=== PATIENT | female | born 1970 | race Caucasian/White ===

== ENCOUNTER 2024-12-25 07:55 | Day surgery (SDC) | payer OTHER ==
[2024-12-23 13:07] VITALS: BP 127/75; PULSE 78; RESP 18; TEMP 97.9; O2SAT 97
[2024-12-23 13:52] LABS: BASOPHIL # 0.1 10^3/uL (0.0-0.1); BASOPHIL % 0.6 % (0.1-1.2); EOSINOPHIL # 0.3 10^3/uL (0.0-0.2); EOSINOPHIL % 2.5 % (0.0-5.0); HEMATOCRIT(ML) 41.2 % (36.0-46.0); IG % 0.30 % (0.00-0.50); LYMPHOCYTES # 3.05 10^3/uL1 (1.0-4.8); LYMPHOCYTES % 29.9 % (24.0-44.0); MEAN CORP HGB 31.8 pg (26-34); MEAN CORP HGB CONCENTRATION 32.8 g/dL (33-36.5); MEAN CORP VOLUME 96.9 fL (78-100); MONOCYTES # 0.6 10^3/uL (0.3-0.8); MONOCYTES % 6.1 % (5.0-12.0); NEUTROPHIL # 6.2 10^3/uL (1.8-7.7); NEUTROPHILS % 60.6 % (41.0-85.0); RED BLOOD CELL 4.25 10^6/uL (4.00-5.20); RED CELL DISTRIBUTION WIDTH 13.8 % (11.5-14.5); WHITE BLOOD CELL 10.2 10^3/uL (4.5-11.0)
[2024-12-23 14:05] LABS: INR 1.0; PROTHROMBIN PROTIME 10.0 SEC (9.3-11.6)
[2024-12-23 14:07] LABS: ALANINE AMINOTRANSFERASE(ML) 45.0 U/L (12-78); ALBUMIN(ML) 3.8 g/dL (3.4-5.0); CREATININE SERUM 0.93 mg/dL (0.59-1.40); EST GFR, NON-AA 62.4 (>/=60)
[2024-12-25] VITALS (14 sets, daily range): BP systolic 90–124; BP diastolic 51–84; PULSE 73–83; RESP 16–18; TEMP 97–98.1; O2SAT 90–99
[~2024-12-25] VITALS: Ht 165.1 cm; Wt 108.0 kg
[~2024-12-25 07:55] MED LIST: AMLO-169 PO; BRIDION IV ONE; DECADRON ONE; DIPRIVAN IV ONE; EXPAREL 266 MG/20 ML VIAL IJ ONE; HYDR25TA9 PO; ISOTON GENTAMICIN 80 MG/100 ML 100 ML IV ONE; LACTATED RINGERS 1,000 ML ONE; LISI40TA PO; LOVENOX SQ ONE; MARCAINE 0.25%-EPI 1:200,000 ONE; MEFOXIN ONE; NS 100ML 100 ML IV ONE; NS 3000ML IRR IR ONE; OFIRMEV 100 ML IV ONE; ONDA-226 PO; PANT40TA6 PO; SENSORCAINE-MPF 0.25% VIAL ONE; SODIUM CHLORIDE IRR BOTTLE IR ONE; SUBLIMAZE 100MCG/2ML ONE; TORADOL ONE; VERSED ONE; XYLOCAINE 2% 5ML VIAL ONE; ZEMURON IV ONE; ZOFRAN ONE
[2024-12-25] MEDS: LACTATED RINGERS 1,000 ML IV ONE (08:20)
[2024-12-25] MEDS: LOVENOX SQ ONE (08:25)
[2024-12-25] MEDS: MEFOXIN 2 GM in NS 100ML 100 ML IV ONE (09:40)
[2024-12-25] MEDS ORDERED: LACTATED RINGERS 1,000 ML ONE (11:21)
== END 2024-12-25 12:20 | disposition home or self-care (01) ==
LOC: SDC 07:55
PROVIDERS: ATTEND Surgery
DX: K80.10 Calculus of gallbladder with chronic cholecystitis without obstruction (principal); I10 Essential (primary) hypertension; K21.9 Gastro-esophageal reflux disease without esophagitis; Z90.710 Acquired absence of both cervix and uterus; Z79.899 Other long term (current) drug therapy
CPT/HCPCS: 80053; 85025; 36415; 85610; 85730; 47563; 88304; 74300; J0666; J1885; J3490 ×4; J1580; J7120 ×2; A4217 ×2; A4649 ×4; J0694; J0131; J1100; J2704; J2003; J1650; J2405; J2250; J3010; Q9967; C9290; Q9965